=== PATIENT | female | born 1980 | race Caucasian/White ===

== ENCOUNTER 2021-03-16 15:35 | Outpatient (CLI) | payer OTHER, SELFPAY ==
--- NOTE | 2021-03-16 15:49 | XRR_ITS ---
PROCEDURE INFORMATION: Exam: XR Lumbosacral Spine Exam date and time: 03/16/2021 3:50 PM Age: 41 years old Clinical indication: Pain and condition or disease; Disc degeneration; Lumbar region; Other: Nerve pain; Prior surgery; Surgery type: Gallbladder; Additional info: Degenerative disc disease of lumbosacral spine TECHNIQUE: Imaging protocol: XR of the lumbosacral spine. Views: 2 or 3 views. COMPARISON: No relevant prior studies available. FINDINGS: Bones/joints: Normal. No acute fracture. Normal alignment. Incidental finding of an L4 limbus vertebral body. Soft tissues: Unremarkable. Intraperitoneal space: Right upper quadrant surgical clips. XR/XR lumbar spine 2-3V* [id number] IMPRESSION: No acute findings.
== END 2021-03-16 15:36 | disposition home or self-care (01) ==
PROVIDERS: Visit Provider Orthopaedic Surgery
DX: M47.897 Other spondylosis, lumbosacral region (principal)
CPT/HCPCS: 72100

== ENCOUNTER 2021-05-07 20:00 | Outpatient (CLI) | payer OTHER, SELFPAY | END 2021-05-07 20:01 | disposition home or self-care (01) | LOC: SLEEP 05-08 08:17 | PROVIDERS: Visit Provider Chiropractor | DX: G47.30 Sleep apnea, unspecified (principal) | CPT/HCPCS: 95810 ==

== ENCOUNTER 2021-06-19 11:14 | Outpatient (CLI) | payer OTHER, SELFPAY ==
[2021-06-19 12:04] LABS: Add Urine Microscopic? NO; Charge for UA Resulting for Rev
[2021-06-19 12:12] LABS: Bilirubin Urine Neg (Negative); Blood Urine Neg (Negative); Glucose Urine UA Norm (Normal); Ketones Urine Negative (Negative); Leukocyte Esterase Urine Negative (Negative); Nitrate Urine Negative (Negative); Protein Urine Neg (Negative); Specific Gravity, Urine 1.015 (1.005-1.030); Urine Appearance Clear (CLEAR); Urine Color Yellow (Yellow); Urobilinogen Urine Norm (Negative); pH Urine 5 (5-7)
[2021-06-19 12:29] LABS: Alanine Aminotransferase 11 U/L (0-33); Albumin Level 4.5 g/dL (3.5-5.2); Alkaline Phosphatase 63 IU/L (35-105); Anion Gap 14.5 (5-19); Aspartate Amino Transferase 14 U/L (0-32); Blood Urea Nitrogen 10 mg/dL (6-20); Calcium 9.1 mg/dL (8.5-10.5); Carbon Dioxide 24 mmol/L (22-29); Chloride 103 mmol/L (98-107); Globulin 2.6 g/dL (1.3-4.6); Glomerular Filtration Rate 137.4 mL/min (90-130); Glucose 80 mg/dL (65-115); Osmolality Calculated 282 mOsm/kg (285-295); Potassium 4.5 mmol/L (3.5-5.1); Sodium 137 mmol/L (136-145); Total Bilirubin 0.6 mg/dL (0.15-1.2); Total Protein 7.1 g/dL (6.6-8.7)
== END 2021-06-19 11:15 | disposition home or self-care (01) ==
LOC: LAB 11:28
PROVIDERS: Visit Provider Chiropractor
DX: E16.2 Hypoglycemia, unspecified (principal)
CPT/HCPCS: 80053; 81003

== ENCOUNTER → 2021-09-26 10:37 | Outpatient (BNVA) | payer OTHER, SELFPAY | PROVIDERS: Visit Provider Nurse Practitioner Women's Health | DX: Z01.419 Encounter for gynecological examination (general) (routine) without abnormal findings (principal) | CPT/HCPCS: 87624 ==

== ENCOUNTER 2022-06-18 14:57 | Outpatient (CLI) | payer OTHER, SELFPAY ==
--- NOTE | 2022-06-18 15:07 | MM_ITS ---
WS: [id number] BILATERAL 3D TOMOSYNTHESIS DIGITAL SCREENING MAMMOGRAPHY WITH CAD CLINICAL INFORMATION: SCREENING HISTORY: Screening mammogram. Nipple discharge. Prior piercing. COMPARISON: None. TECHNIQUE: Bilateral CC and MLO views. FINDINGS: Scattered fibroglandular densities bilaterally. Incidental punctate calcifications. No suspicious foc al mass, asymmetry, calcifications, or architectural distortion. No evidence of malignancy. MM/[place] [id number] IMPRESSION: BI-RADS: 2-Benign FOLLOW UP: 1 Year Follow-up Recommend return to annual screening mammography.
== END 2022-06-18 14:58 | disposition home or self-care (01) ==
PROVIDERS: PCP Nurse Practitioner; Visit Provider Nurse Practitioner
DX: Z12.31 Encounter for screening mammogram for malignant neoplasm of breast (principal)
CPT/HCPCS: 77063; 77067

== ENCOUNTER → 2022-08-05 15:24 | Outpatient (BNVA) | payer OTHER, SELFPAY | PROVIDERS: PCP Nurse Practitioner; Referring Provider Nurse Practitioner; Visit Provider Specialist | DX: G56.03 Carpal tunnel syndrome, bilateral upper limbs (principal) | CPT/HCPCS: 95910; 95912 ==

== ENCOUNTER → 2023-04-17 13:47 | Outpatient (BNVA) | payer OTHER, SELFPAY | PROVIDERS: PCP Nurse Practitioner; Referring Provider Nurse Practitioner; Visit Provider Internal Medicine | DX: R79.89 Other specified abnormal findings of blood chemistry (principal); N92.6 Irregular menstruation, unspecified | CPT/HCPCS: 99204 ==

== ENCOUNTER 2023-04-21 07:57 | Outpatient (CLI) | payer OTHER, SELFPAY ==
[2023-04-21 09:00] LABS: Testosterone Total 11.8 ng/dL (8.4-48.1)
[2023-04-21 09:02] LABS: Estradiol 60.6 pg/mL; Follicle Stimulating Hormone 4.3 mIU/mL; Luteinizing Hormone 6.5 mIU/mL (0.5-41.7)
--- NOTE | 2023-04-21 13:15 | US_ITS ---
WS: [id number] US transvaginal [id number] HISTORY: high testosterone COMPARISON: None available. Uterus: 7.9 cm x 5.2 cm x 4.8 cm. Normal size anteverted uterus. No fibroid or mass. Endometrium: 1.3 cm. Normal. Right ovary: 3.7 cm x 3.0 cm x 3.5 cm. Complex cyst associated with the RIGHT ovary. The cystic mass measures 2.3 x 2.2 x 3.0 cm. There is a fluid and solid nonvascular nodule within the cyst. Favor thi s is probably gaby hemorrhagic cyst. Endometrioma within the differential also. Left ovary: 2.5 cm x 2.5 cm x 1.9 cm. Normal size and vascularity, no cystic or solid masses. No free fluid in the cul-de-sac. US/US transvaginal [id number] IMPRESSION: 1. Complex cyst RIGHT ovary measures 2.3 x 2.2 x 3.0 cm. Differential is hemor rhagic cyst with involuting clot and endometrioma. There is no increased vascul arity within the cystic mass. O-RADS 2. Consider 6-8 week transvaginal ultrasou nd follow-up. Normal uterus.
[2023-04-22 11:49] LABS: Dehydroepiandrosterone Sulfate 132 mcg/dL (15-205)
== END 2023-04-21 07:58 | disposition home or self-care (01) ==
PROVIDERS: PCP Nurse Practitioner; Visit Provider Internal Medicine
DX: R79.89 Other specified abnormal findings of blood chemistry (principal); N83.291 Other ovarian cyst, right side
CPT/HCPCS: 36415; 76830; 82627; 82670; 83001; 83002; 84403

== ENCOUNTER 2023-06-24 10:22 | Outpatient (CLI) | payer OTHER, SELFPAY ==
--- NOTE | 2023-06-24 10:42 | MM_ITS ---
WS: [id number] VIEWS: MLO and CC views both breasts. 3D digital tomosynthesis is also included in this exam. Comparison made with prior exam of 06/18/2022. Findings: There was no sign of mass, architectural distortion or suspicious calcification in either breast. The re are scattered areas of fibroglandular density. Impression: MM/[place] [id number] BI-RADS: 2-Benign FOLLOW-UP: 1 Year Follow-up This mammogram was also analyzed by the Computer Aided Detection System R2 Imag e Prospecting Driller Helper.
== END 2023-06-24 10:23 | disposition home or self-care (01) ==
LOC: RAD 10:26
PROVIDERS: PCP Nurse Practitioner; Visit Provider Nurse Practitioner Women's Health
DX: Z12.31 Encounter for screening mammogram for malignant neoplasm of breast (principal)
CPT/HCPCS: 77063; 77067

== ENCOUNTER 2023-11-19 09:10 | Outpatient (CLI) | payer OTHER, SELFPAY | END 2023-11-19 09:11 | disposition home or self-care (01) | LOC: LAB 09:19 | PROVIDERS: PCP Nurse Practitioner | DX: N92.6 Irregular menstruation, unspecified (principal); K76.0 Fatty (change of) liver, not elsewhere classified; R79.89 Other specified abnormal findings of blood chemistry | CPT/HCPCS: 36415; 82306; 82310; 82533; 83735; 84100; 84439; 84443; 85651; 86038; 86225; 86235; 86431; 99214 ==

== ENCOUNTER 2023-12-02 08:59 | Outpatient (CLI) | payer OTHER, SELFPAY ==
--- NOTE | 2023-12-02 10:00 | US_ITS ---
WS: [id number] RIGHT UPPER QUADRANT ULTRASOUND HISTORY: fatty liver COMPARISON: None available. Liver: 16.7 cm in length. Normal size liver and echogenicity. No bile duct dilatation or mass. Portal Vein: Normal hepatopetal flow with monophasic waveform. Gallbladder: Surgically absent. CBD: 0.3 cm Pancreas: Normal size and echogenicity. Right kidney: 13.4 cm in length. Normal size and echogenicity. No hydronephrosis or mass. Aorta and IVC: Unremarkable abdominal aorta and IVC. No ascites. IMPRESSION: 1. Status post cholecystectomy. 2. No bile duct dilatation. 3. No ascites.
--- NOTE | 2023-12-02 10:30 | US_ITS ---
WS: [id number] US transvaginal [id number] HISTORY: N83.209 - Unspecified ovarian cyst, unspecified side COMPARISON: 04/21/2023 Uterus: 8.4 cm x 5.4 cm x 4.9 cm. Normal size anteverted uterus. No fibroid or mass. Endometrium: 1.0 cm. Normal. Right ovary: 3.3 cm x 2.3 cm x 2.9 cm. Several small follicles identified within the RIGHT ovary. Pre viously described complex cyst on the prior study is no longer present. No solid mass. Left ovary: 1.8 cm x 2.0 cm x 1.5 cm. Normal size and vascularity, no cystic or solid masses. No free fluid in the cul-de-sac. IMPRESSION: 1. Normal transvaginal pelvic ultrasound. 2. Previously described complex cyst within the RIGHT ovary has resolved.
== END 2023-12-02 09:00 | disposition home or self-care (01) ==
LOC: RAD 08:59
PROVIDERS: PCP Nurse Practitioner; Visit Provider Internal Medicine
DX: N83.291 Other ovarian cyst, right side (principal); N92.6 Irregular menstruation, unspecified; K76.0 Fatty (change of) liver, not elsewhere classified
CPT/HCPCS: 76705; 76830

== ENCOUNTER → 2023-12-10 08:14 | Outpatient (BNVA) | payer OTHER, SELFPAY | PROVIDERS: PCP Nurse Practitioner; Visit Provider Internal Medicine | DX: E16.2 Hypoglycemia, unspecified (principal); N92.6 Irregular menstruation, unspecified; N83.209 Unspecified ovarian cyst, unspecified side | CPT/HCPCS: 99214 ==

== ENCOUNTER 2024-01-12 09:37 | Outpatient (CLI) | payer OTHER, SELFPAY ==
[2024-01-19 04:45] LABS: Metanephrines Total Urine 1200 mL; Urine Metanephrines Total 133 mcg/24 h (182-739)
[2024-01-21 16:25] LABS: 24 Hour Urine Volume 1200 mL; 5-HIAA, 24 Hour Urine 10.5 mg/24 h (< OR = 6.0)
== END 2024-01-12 09:38 | disposition home or self-care (01) ==
LOC: LAB 09:39
PROVIDERS: Allergy & Immunology; PCP Nurse Practitioner; Visit Provider Nurse Practitioner
DX: R23.2 Flushing (principal)
CPT/HCPCS: 82570; 83497; 83835; 84585

== ENCOUNTER 2024-10-13 10:42 | Emergency (ER) | payer OTHER, SELFPAY ==
[2024-10-13 10:45] VITALS: BP 113/73; PULSE 70; RESP 16; TEMP 36.7; O2SAT 100; BMI 32.5
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
[2024-10-13 12:39] LABS: ABG PCO2 27.9 mmHg (35-45); Alveolar-Arterial Oxygen Gradi 0.2 mmHg (5-10); Arterial Blood Gas Hematocrit 40.6 % (37-47); Base Excess ABG -0.1 mmol/L (-2.0-2.0); Blood Gas Allen Test Pos; Blood Gas Operator Identificat WALCI; Blood Gas Sample Site Radial, left; Blood Gas Sample Type Arterial; Carboxyhemoglobin 0.5 %THgb (0.4-20.1); HGB O2 Sat 98.1 % (95-100); Ionized Calcium Level - ABG 1.2 mmol/L (1.1-1.4); Methemoglobin 0.6 % (0.4-1.5); Oxygen Device ROOM AIR; Oxygen Saturation ABG 99.1; PO2 FiO2 Ratio Arterial Blood 538; Potassium Level - ABG 3.6 mmol/L (3.5-5.0); Total Hemoglobin 13.2 g/dL (12-16)
[2024-10-13] MEDS: dexamethasone 10 mg/mL INJ IM (12:48)
[2024-10-13] MEDS: ketorolac 60 mg/2 mL INJ IM (12:49)
[2024-10-13 13:07] VITALS: PULSE 68; O2SAT 100
[2024-10-13 13:18] VITALS: PULSE 71; O2SAT 100
== END 2024-10-13 13:19 | disposition home or self-care (01) ==
PROVIDERS: Emergency Provider Emergency Medicine; PCP Nurse Practitioner
DX: R51.9 Headache, unspecified (principal)
CPT/HCPCS: 36600; 80051; 82330; 82805; 96372; 99284; J1100; J1885

== ENCOUNTER 2025-08-01 08:19 | Outpatient (CLI) | payer OTHER, SELFPAY ==
--- NOTE | 2025-08-01 08:54 | US_ITS ---
WS: [id number] ULTRASOUND BILATERAL BREAST, complete HISTORY: Screening ultrasound. COMPARISON: Screening mammogram 06/24/2023 TECHNIQUE: 2-D and Doppler. Ultrasound is performed of the quadrants of each breast and also the axilla. There are no suspicious masses or areas of distortion. No skin thickening. Benign lymph nodes in the axilla. [place] [id number] IMPRESSION: BI-RADS: 2- Benign FOLLOW-UP: See Report 1. Recommend screening mammogram evaluation. 2. Negative screening breast ultrasound does not replace a screening mammogram evaluation.
== END 2025-08-01 08:20 | disposition home or self-care (01) ==
LOC: RAD 08:20
PROVIDERS: PCP Nurse Practitioner; Visit Provider Nurse Practitioner
DX: Z12.31 Encounter for screening mammogram for malignant neoplasm of breast (principal); D36.0 Benign neoplasm of lymph nodes
CPT/HCPCS: 76641

== ENCOUNTER 2025-08-17 11:47 | Emergency (ER) | payer OTHER, SELFPAY ==
[2025-08-17 11:50] VITALS: BP 121/78; PULSE 85; TEMP 36.4; O2SAT 98; BMI 37.3
--- NOTE | 2025-08-17 11:58 | ECG_ITS ---
[employer] Test Date: 2025-08-17 Pat Name: Smitha Celaya Department: Room: Gender: Female Zoning Engineer: : 1980 Requested By: Rey Bush Order Number: [id number] Brady MD: Rubi Yu M.D. Measurements Intervals [place] Rate: 76 P: 60 NM: 155 QRS: 52 QRSD: 102 T: 35 QT: 386 QTc: 435 Interpretive Statements SINUS RHYTHM POSSIBLE LEFT ATRIAL ENLARGEMENT [-0.1mV P-WAVE IN V1/V2] NONSPECIFIC ST & T-WAVE ABNORMALITY INTERPRETATION BASED ON A DEFAULT AGE OF 40 YEARS No previous ECG available for comparison Electronically Signed On 08-17-2025 16:54:03 CDT by Rubi Yu M.D. [email or web address]
[2025-08-17 13:45] LABS: Hematocrit 41.4 % (36-47); Hemoglobin 13.60 g/dL (11.27-16.99); Mean Corpuscular HGB Conc 32.9 g/dL (30-55); Mean Corpuscular Hemoglobin 28.0 pg (27-33); Mean Corpuscular Volume 85.4 fl (85-98); Nucleated Red Blood Cells % 0 %; Platelet Count 306 10^3/cmm (157-399); Red Blood Count 4.85 10^6/uL (3.85-5.65); White Blood Count 10.20 10^3/uL (3.29-11.43)
[2025-08-17 13:50] LABS: Glucose Urine UA Negative (Normal); Nitrate Urine Negative (Negative); Specific Gravity, Urine 1.021 (1.005-1.030)
[2025-08-17 13:54] LABS: Add Urine Microscopic? YES
[2025-08-17 14:02] LABS: HCG, Serum Qual Negative (Negative)
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
[2025-08-17 14:07] LABS: Alanine Aminotransferase 11 U/L (0-33); Albumin Level 4.6 g/dL (3.5-5.2); Alkaline Phosphatase 72 U/L (35-105); Anion Gap 17.2 (5-19); Aspartate Amino Transferase 14 U/L (0-32); Blood Urea Nitrogen 11 mg/dL (6-20); Calcium 9.7 mg/dL (8.5-10.5); Carbon Dioxide 23 mmol/L (22-29); Chloride 104 mmol/L (98-107); Creatinine Clr Calc Pharmacy 178.9379; Globulin 2.7 g/dL (1.3-4.6); Glucose 86 mg/dL (65-115); Lipase 26 U/L (13-60); Osmolality Calculated 289 mOsm/kg (285-295); Potassium 4.2 mmol/L (3.5-5.1); Sodium 140 mmol/L (136-145); Total Protein 7.3 g/dL (6.6-8.7)
[2025-08-17 14:40] VITALS: BP 115/77; BP 115/83; BP 128/82; PULSE 69; PULSE 76; PULSE 78
--- NOTE | 2025-08-17 14:57 | PC.PHAR ---
[facility]
[2025-08-17 15:09] VITALS: BP 128/82; PULSE 64; O2SAT 98
== END 2025-08-17 15:10 | disposition home or self-care (01) ==
PROVIDERS: Emergency Medicine; Emergency Provider Family Medicine; PCP Nurse Practitioner
DX: H81.11 Benign paroxysmal vertigo, right ear (principal); Z87.891 Personal history of nicotine dependence
CPT/HCPCS: 36415; 80053; 81001; 83690; 84703; 85025; 93005; 99284; J7030